=== PATIENT | female | born 1960 | race Caucasian/White ===

== ENCOUNTER 2025-08-31 04:58 | Inpatient (IN) | payer OTHER ==
[2025-08-31] MEDS ORDERED: ONDANSETRON 4 MG/2 ML VIAL ONE (05:03)
[2025-08-31] MEDS ORDERED: NA CHLORIDE 0.9% 50 ML ONE (05:04)
[2025-08-31] MEDS ORDERED: PROMETHAZINE INJ 25 MG/ML AMP ONE (05:04)
[2025-08-31 05:18] LABS: Absolute Lymphocytes (CBC) 2.4 K/uL (0.7-4.9); Hematocrit 49.2 % (36.0-45.0); Hemoglobin 16.3 g/dL (12.0-15.0); MCH 28.5 pg (27.0-35.0); MCHC 33.1 g/dL (32.0-36.0); MCV 86.2 fL (80-100); MPV 8.2 fL (7.6-11.3); Nucleated RBC Absolute Count 0.0 (0-0); Nucleated Red Blood Cells % 0.0 % (0-0); RBC Red Blood Cell Count 5.71 M/uL (3.86-4.86); White Blood Count 15.60 thou/uL (4.3-10.9)
[2025-08-31] MEDS ORDERED: CLOPIDOGREL 75 MG TABLET ONE (05:25)
[2025-08-31] MEDS ORDERED: HEPARIN/D5W 25,000 UNIT/500 ML BAG IV ONE (05:26)
[2025-08-31] MEDS ORDERED: NA CHLORIDE 0.9% 1,000 ML ONE (05:26)
[2025-08-31] MEDS ORDERED: FAMOTIDINE 20 MG/2 ML VIAL IV ONE (05:26)
[2025-08-31] MEDS ORDERED: ASPIRIN 81 MG CHEWABLE TABLET ONE (05:26)
[2025-08-31] MEDS ORDERED: HEPARIN 5000 UNIT/ML 1 ML VIAL ONE (05:26)
--- NOTE | 2025-08-31 05:35 | EDPHYS ---
Physician Documentation [facility] Name: Emperatriz Lambert Age: 65 yrs Sex: Female : 1960 Arrival Date: 08/31/2025 Time: 04:58 Bed 2 Private MD: ED Physician Russ Flores HPI: 08/31 05:13 This 65 yrs old Female presents to ER via Unassigned with complaints of cp, ray sob, n/v. 05:13 The patient or guardian reports chest pain that is located primarily in the substernal ray area. Onset: this morning, at 01:00. The patient presents to the emergency department with nausea, vomiting, abdominal pain, of the epigastric area. Onset: The symptoms/episode began/occurred at 01:00. Possible causes: unknown. The symptoms are aggravated by nothing. The symptoms are alleviated by nothing. cp , sent Sunday , left ama. The pain does not radiate. Associated signs and symptoms: Pertinent positives: abdominal pain, belching, nausea, vomiting. Associated signs and symptoms: The patient has no apparent associated signs or symptoms. Historical: - Allergies: 05:16 No Known Allergies; vc1 - Home Meds: 05:16 losartan 25 mg oral tablet [Active]; atorvastatin 80 mg oral tablet [Active]; baclofen vc1 10 mg Oral tablet 3 times per day [Active]; Prozac 40 mg Oral capsule [Active]; Jardiance 10 mg oral tablet [Active]; trazodone 100 mg Oral tablet [Active]; hydroxyzine HCl 25 mg Oral tablet 3 times per day [Active]; - PMHx: 05:16 Hypercholesterolemia; Hypertensive disorder; Anxiety; Depressive disorder; Diabetes vc1 mellitus; - PSHx: 05:16 cardiac stent; vc1 - Immunization history:: Client reports receiving the 2nd dose of the Covid vaccine. - Infectious Disease History:: Denies. - Family history:: not pertinent. - Social history:: Smoking status: Patient reports the use of cigarette tobacco products, smokes one-half pack cigarettes per day. ROS: 05:17 Constitutional: Negative for fever, chills, and weight loss, Eyes: Negative for injury, ray pain, redness, and discharge, ENT: Negative for injury, pain, and discharge, Neck: Negative for injury, pain, and swelling, Respiratory: Negative for shortness of breath, cough, wheezing, and pleuritic chest pain, Back: Negative for injury and pain, : Negative for injury, bleeding, discharge, and swelling, MS/Extremity: Negative for injury and deformity, Skin: Negative for injury, rash, and discoloration, Neuro: Negative for headache, weakness, numbness, tingling, and seizure, Psych: Negative for depression, anxiety, suicide ideation, homicidal ideation, and hallucinations, Allergy/Immunology: Negative for hives, rash, and allergies, Endocrine: Negative for neck swelling, polydipsia, polyuria, polyphagia, and marked weight changes, 05:17 Cardiovascular: Positive for chest pain, 05:17 Respiratory: Positive for cough, 05:17 Abdomen/GI: Positive for abdominal pain, nausea and vomiting, abdominal cramps, 05:17 MS/extremity: Negative for acute changes, Exam: 05:17 Constitutional: This is a well developed, well nourished patient who is awake, alert, ray and in no acute distress. Head/Face: Normocephalic, atraumatic. Eyes: Pupils equal round and reactive to light, extra-ocular motions intact. Lids and lashes normal. Conjunctiva and sclera are non-icteric and not injected. Cornea within normal limits. Periorbital areas with no swelling, redness, or edema. ENT: Nares patent. No nasal discharge, no septal abnormalities noted. Tympanic membranes are normal and external auditory canals are clear. Oropharynx with no redness, swelling, or masses, exudates, or evidence of obstruction, uvula midline. Mucous membranes moist. Neck: Trachea midline, no thyromegaly or masses palpated, and no cervical lymphadenopathy. Supple, full range of motion without nuchal rigidity, or vertebral point tenderness. No Meningismus. Chest/axilla: Normal chest wall appearance and motion. Nontender with no deformity. No lesions are appreciated. Respiratory: Lungs have equal breath sounds bilaterally, clear to auscultation and percussion. No rales, rhonchi or wheezes noted. No increased work of breathing, no retractions or nasal flaring. Abdomen/GI: Soft, non-tender, with normal bowel sounds. No distension or tympany. No guarding or rebound. No evidence of tenderness throughout. Back: No spinal tenderness. No costovertebral tenderness. Full range of motion. Skin: Warm, dry with normal turgor. Normal color with no rashes, no lesions, and no evidence of cellulitis. MS/ Extremity: Pulses equal, no cyanosis. Neurovascular intact. Full, normal range of motion., bilateral aka Neuro: Awake and alert, GCS 15, oriented to person, place, time, and situation. Cranial nerves II-XII grossly intact. Motor strength 5/5 in all extremities. Sensory grossly intact. Cerebellar exam normal. Normal gait. Psych: Awake, alert, with orientation to person, place and time. Behavior, mood, and affect are within normal limits. 05:17 Cardiovascular: Rate: actual rate is 108 bpm, Rhythm: regular, Pulses: Pulses are 4+ in bilateral radial, brachial, femoral, popliteal, posterior tibial and and dorsalis pedis arteries.. Heart sounds: normal, Edema: is not appreciated, JVD: is not appreciated, Vital Signs: 05:12 BP 152 / 109; Pulse 112; Resp 20; Pulse Ox 97% ; Weight 83.46 kg; Height 5 ft. 6 in. ; vc1 05:22 Weight 93.26 kg (M); vc1 05:57 Temp 97.4; vc1 06:37 BP 155 / 119; Pulse 103; Resp 17; Temp 97.4; Pulse Ox 95% on 2 lpm NC; Pain 8/10; bm8 07:57 BP 152 / 97; Pulse 104; Resp 22; Pulse Ox 91% on R/A; Pain 5/10; ar8 08:15 BP 161 / 93; Pulse 107; Resp 24; Pulse Ox 90% ; db 08:25 Pulse Ox 83% on 4 lpm NC; ar8 08:45 BP 165 / 97; Pulse 115; Resp 30; Pulse Ox 88% on NC; db 09:30 BP 158 / 105; Pulse 113; Resp 28; Pulse Ox 93% on BiPAP; db 10:15 BP 147 / 95; Pulse 107; Resp 28; Pulse Ox 92% on BiPAP; db 05:12 Body Mass Index 29.70 (93.26 kg, 167.64 cm) vc1 06:37 Pain Scale: Adult bm8 07:57 Pain Scale: Adult ar8 Jessenia Coma Score: 06:37 Eye Response: spontaneous(4). Motor Response: obeys commands(6). Verbal Response: bm8 oriented(5). Total: 15. MDM: 05:04 Medical Screening Exam initiated ray 05:20 Differential diagnosis: abnormal EKG, acute myocardial infarction, acute pericarditis, ray Nonspecific abd pain, gastritis, hiatal hernia, pancreatitis, peptic ulcer disease, stable angina, thoracic aortic disection, unstable angina. Differential Diagnosis altered mental status, sepsis, flu. HEART Score: History: Moderately Suspicious (1), ECG: Non specific repolarization disturbance / LBTB / PM (1), Age: > 45 and < 65 years (1), Risk Factors: > or = 3 Risk factors for atherosclerotic disease (2), [Hypercholesterolemia] [Hypertension] [DM] [Active Smoker] [+ Family HX] [Obesity] Troponin: < or = 1 x Normal Limit (0). The patient was given aspirin in the Emergency Department. AMANDA Risk Score: 1 - Three or more CAD risk factors, 1- Known CAD, 1 - ASA use in past 7 days, 1 - Recent [<24hrs] Severe Angina, TOTAL SCORE = 5. Data reviewed: vital signs, nurses notes, EMS record, lab test result(s), EKG, radiologic studies, plain films. Consideration of Admission/Observation Patient was admitted/placed on observation. Escalation of care including admission/observation considered. I considered the following discharge prescriptions or medication management in the emergency department Medications were administered in the Emergency Department. See MAR. Independent interpretation of the following test(s) in the Emergency Department EKG: See my EKG interpretation above. Test considered but Not performed: Ultrasound no 2 d echo. Care significantly affected by the following chronic conditions: Diabetes, Hypertension, Obesity, depression, high chlesterol. Counseling: I had a detailed discussion with the patient and/or guardian regarding the historical points, exam findings, and any diagnostic results supporting the discharge/admit diagnosis, the presence of at least one elevated blood pressure reading (>120/80) during this emergency department visit, lab results, radiology results, the need for further work-up and treatment in the hospital. 08/31 05:07 Order name: Basic Metabolic Panel; Complete Time: 06:35 [facility] 08/31 05:07 Order name: CBC with Diff; Complete Time: 06:35 [facility] 08/31 05:07 Order name: LFT's; Complete Time: 06:35 [facility] 08/31 05:07 Order name: Magnesium; Complete Time: 06:35 ray 08/31 05:07 Order name: NT PRO-BNP; Complete Time: 06:35 ray 08/31 05:07 Order name: PT-INR ray 08/31 05:07 Order name: Troponin HS; Complete Time: 06:35 ray 08/31 05:07 Order name: Lipase; Complete Time: 06:35 ray 08/31 05:41 Order name: Ptt, Activated; Complete Time: 06:35 bm8 08/31 07:16 Order name: Liver (Hepatic) Function EDMS 08/31 07:16 Order name: Basic Metabolic Panel EDMS 08/31 07:16 Order name: Basic Metabolic Panel EDMS 08/31 07:16 Order name: Basic Metabolic Panel EDMS 08/31 07:16 Order name: Basic Metabolic Panel EDMS 08/31 07:16 Order name: CBC with Automated Diff EDMS 08/31 07:16 Order name: CBC with Automated Diff EDMS 08/31 07:16 Order name: CBC with Automated Diff EDMS 08/31 07:16 Order name: CBC with Automated Diff EDMS 08/31 07:16 Order name: Lipid Profile EDMS 08/31 07:16 Order name: Lipid Profile EDMS 08/31 07:16 Order name: Magnesium EDMS 08/31 07:16 Order name: Magnesium EDMS 08/31 07:16 Order name: Magnesium EDMS 08/31 07:16 Order name: Magnesium EDMS 08/31 07:16 Order name: Phosphorus EDMS 08/31 07:16 Order name: Phosphorus EDMS 08/31 07:16 Order name: Protime (+INR) EDMS 08/31 07:16 Order name: Protime (+INR) EDMS 08/31 07:16 Order name: Protime (+INR) EDMS 08/31 07:16 Order name: Protime (+INR) EDMS 08/31 07:16 Order name: T4 Free EDMS 08/31 07:16 Order name: T4 Free EDMS 08/31 07:16 Order name: Thyroid Stimulating Hormone EDMS 08/31 07:16 Order name: Thyroid Stimulating Hormone EDMS 08/31 07:16 Order name: Troponin High Sensitivity EDMS 08/31 07:16 Order name: Troponin High Sensitivity EDMS 08/31 07:16 Order name: Troponin High Sensitivity EDMS 08/31 05:07 Order name: XRAY Chest (1 view); Complete Time: 08:29 [facility] 08/31 07:16 Order name: Chest For Pe Angio EDDE 08/31 09:54 Order name: BIPAP rn 08/31 07:10 Order name: CONS Physician Consult EDDE 08/31 07:12 Order name: EKG; Complete Time: 07:12 [facility] 08/31 07:16 Order name: EKG Electrocardiogram [facility] 08/31 07:16 Order name: EKG Electrocardiogram [facility] 08/31 07:16 Order name: EKG Electrocardiogram [facility] 08/31 05:07 Order name: Cardiac monitoring; Complete Time: 05:30 [facility] 08/31 05:07 Order name: EKG - Nurse/Tech; Complete Time: 05:34 [facility] 08/31 05:07 Order name: IV Saline Lock; Complete Time: 05:30 [facility] 08/31 05:07 Order name: Labs collected and sent; Complete Time: 05:29 [facility] 08/31 05:07 Order name: O2 Per Protocol; Complete Time: 05:34 [facility] 08/31 05:07 Order name: O2 Sat Monitoring; Complete Time: 05:30 [facility] 08/31 07:12 Order name: EKG - Nurse/Tech [facility] Administered Medications: 05:11 Drug: Promethazine IM 12.5 mg IM once; iv plese in 100 cc ns {Note: left hand mixed in vc1 saline per provider.} Route: IM; Site: Other; 06:00 Follow up: Response: No adverse reaction; Marked relief of symptoms vc1 05:12 Drug: Ondansetron IVP 4 mg IVP once; over 2 minutes Route: IVP; Site: left hand; vc1 05:30 Follow up: Response: No adverse reaction; Marked relief of symptoms vc1 05:33 Drug: NS 0.9% IV 1000 ml IV at 1000 ml once; to be given as a bolus over 60 minutes bm8 Route: IV; Rate: 1000 ml; Site: left hand; 06:33 Follow up: IV Status: Completed infusion; IV Intake: 1000ml vc1 05:33 Drug: Aspirin PO Chewable Tablet 162 mg PO once Route: PO; bm8 06:45 Follow up: Response: No adverse reaction vc1 05:33 Drug: Famotidine IVP 20 mg IVP once; dilute with 10 mL 0.9% NaCl; give over 2 minutes bm8 Route: IVP; Site: left hand; 06:00 Follow up: Response: No adverse reaction; Marked relief of symptoms vc1 05:33 Drug: Clopidogrel PO 150 mg PO once Route: PO; bm8 06:46 Follow up: Response: No adverse reaction; Marked relief of symptoms vc1 05:39 Drug: fentaNYL (PF) IVP 25 mcg IVP once Route: IVP; Site: left antecubital; bm8 06:00 Follow up: Response: No adverse reaction; Marked relief of symptoms; RASS: Light vc1 sedation (-2) 05:39 Drug: fentaNYL (PF) IVP 25 mcg IVP once Route: IVP; Site: left antecubital; bm8 06:00 Follow up: Response: No adverse reaction; Marked relief of symptoms; RASS: Light vc1 sedation (-2) 05:40 Drug: Heparin (NC-Bolus No thrombolytic) - HEParin IVP 60 units/kg IVP once; Max 5000 bm8 units {Co-Signature: vc1 (Ree Askew RN).} Route: IVP; Site: left antecubital; 05:45 Follow up: Response: No adverse reaction vc1 05:40 Drug: Heparin (NC Drip) 12 units/kg/[place] - ([place] [address] units, D5W IV 500 ml) IV at bm8 calculated rate Per protocol; Max initial rate 1000 units/hr {Co-Signature: vc1 (Ree Askew RN).} Route: IV; Rate: 1000 units/hr; Site: left antecubital; 10:39 Follow up: Response: No adverse reaction; IV Status: Infusion continued upon admission db 06:57 Drug: Nitroglycerin Transdermal Ointment 2 % 1 inches Transdermal once Route: bm8 Transdermal; Site: anterior chest wall; 10:39 Follow up: Response: No adverse reaction db 07:06 Drug: Potassium PO Effervescent Tablet 25 mEq PO once; dissolve in 4 ounces of water or vc1 juice {Note: ADMINISTERED 20 MG CAP PER PROVIDER.} Route: PO; 10:39 Follow up: Response: No adverse reaction db 07:31 Drug: Ondansetron IVP 4 mg IVP once; over 2 minutes Route: IVP; Site: left hand; ar8 10:38 Follow up: Response: No adverse reaction db 07:33 Drug: morphine IVP or IV 2 mg IVP once over 4 mins Route: IVP; Infused Over: 4 mins; ar8 Site: left hand; 10:38 Follow up: Response: No adverse reaction db 10:05 Not Given (Physician Discretion): morphineor iv 2 mg IVP once over 4 mins ar8 Disposition Summary: 08/31/25 05:34 Hospitalization Ordered Notes: Hospitalization Status: Inpatient Admission ray Provider: Johnny Sofia cha Condition: Fair ray Problem: an acute exacerbation ray Symptoms: have improved ray Bed/Room Type: Standard ray Location: Intensive Care Unit(08/31/25 09:46) hb Room Assignment: 7-(08/31/25 10:08) bd Diagnosis - Chest pain, unspecified ray - Essential (primary) hypertension ray - Vomiting ray - COPD/ Chronic obstructive pulmonary disease, unspecified ray - Tobacco abuse counseling ray - Tobacco use ray - Anxiety disorder, unspecified ray Forms: - Medication Reconciliation Form ray - SBAR form ray - Leadership Thank You Letter ray Signatures: Dispatcher [employer] EDMS Ivania Cohen Corey, MD MD cha Nieto, Roman, MD MD rn Baxter, Heather, RN RN hb Ree Askew RN RN vc1 Justin Bautista, RN RN bm8 Bolivar Nevarez, RN RN ar8 Jennifer Johnson RN db Ree Askew RN vc1 Corrections: (The following items were deleted from the chart) 05:08 05:08 BASIC METABOLIC PANEL+C.LAB.BRZ ordered. EDMS EDMS 05:08 05:08 CBC+H.LAB.BRZ ordered. EDMS EDMS 05:08 05:08 HEPATIC FUNCTION+C.LAB.BRZ ordered. EDMS EDMS 05:08 05:08 MAGNESIUM+C.LAB.BRZ ordered. EDMS EDMS 05:08 05:08 PROBNP+C.LAB.BRZ ordered. EDMS EDMS 05:08 05:08 PROTIME (+INR)+COAG.LAB.BRZ ordered. EDMS EDMS 05:08 05:08 Troponin High Sensitivity+C.LAB.BRZ ordered. EDMS EDMS 05:08 05:08 LIPASE+C.LAB.BRZ ordered. EDMS EDMS 05:08 05:08 Chest Single View+RAD.RAD.BRZ ordered. EDMS EDMS 07:18 05:34 ray bd 09:46 05:34 Telemetry/MedSurg (Inpatient) [facility] 09:46 07:18 404 bd hb 09:48 09:48 PTT, ACTIVATED+COAG.LAB.BRZ ordered. EDMS EDMS 10:08 09:46 [facility]
--- NOTE | 2025-08-31 05:35 | ER ---
Nurse's Notes [facility] Name: Emperatriz Lambert Age: 65 yrs Sex: Female : 1960 Arrival Date: 08/31/2025 Time: 04:58 Bed 2 Private MD: Diagnosis: Chest pain, unspecified;Essential (primary) hypertension;Vomiting;COPD/ Chronic obstructive pulmonary disease, unspecified;Tobacco abuse counseling;Tobacco use;Anxiety disorder, unspecified Presentation: 08/31 05:12 Chief complaint: EMS states: cardiac stent placed on Sunday, chest pain since and vc1 started vomiting a 0100. Coronavirus screen: Client denies travel out of the [place] in the last 14 days. At this time, the client does not indicate any symptoms associated with coronavirus-19. Ebola Screen: Patient negative for fever greater than or equal to 101.5 degrees Fahrenheit, and additional compatible Ebola Virus Disease symptoms Patient denies exposure to infectious person. Patient denies travel to an Ebola-affected area in the 21 days before illness onset. No symptoms or risks identified at this time. Initial Sepsis Screen: Does the patient meet any 2 criteria? No. Patient's initial sepsis screen is negative. Does the patient have a suspected source of infection? No. Patient's initial sepsis screen is negative. Risk Assessment: Do you want to hurt yourself or someone else? Patient reports no desire to harm self or others. Note Pt left AMA after cardiac stent and therefore did not receive any anticoagulants. Onset of symptoms was August 31, 2025 at 01:00. Care prior to arrival: Medication(s) given: zofran 4 mg, IV initiated. 20 GA, in the left hand, Glucose check: 141. Activity prior to arrival: vomiting. Mechanism of Injury: No Mechanism of Injury. Transition of care: patient was not received from another setting of care. 05:12 Method Of Arrival: EMS: [facility] vc1 05:12 Acuity: CODI 3 vc1 Triage Assessment: 05:19 General: Appears uncomfortable, ill, Behavior is anxious. Pain: Complains of pain in vc1 epigastric area. EENT: No deficits noted. No signs and/or symptoms were reported regarding the EENT system. Neuro: Level of Consciousness is awake, alert, obeys commands, Oriented to person, place, time, situation, Appropriate for age. Cardiovascular: Capillary refill < 3 seconds Patient's skin is warm and dry. Cardiovascular: Reports chest pain, nausea, vomiting, Heart tones S1 S2 present. Respiratory: Airway is patent Respiratory effort is even, unlabored, Respiratory pattern is regular, symmetrical, Breath sounds are clear bilaterally. GI: Pt is actively vomiting Reports epigastric pain, nausea, vomiting. : No deficits noted. No signs and/or symptoms were reported regarding the genitourinary system. Derm: Skin is intact, is healthy with good turgor, Skin is dry, Skin is normal, Skin temperature is warm. Musculoskeletal: Circulation, motion, and sensation intact. Range of motion: intact in all extremities. Historical: - Allergies: 05:16 No Known Allergies; vc1 - Home Meds: 05:16 losartan 25 mg oral tablet [Active]; atorvastatin 80 mg oral tablet [Active]; baclofen vc1 10 mg Oral tablet 3 times per day [Active]; Prozac 40 mg Oral capsule [Active]; Jardiance 10 mg oral tablet [Active]; trazodone 100 mg Oral tablet [Active]; hydroxyzine HCl 25 mg Oral tablet 3 times per day [Active]; - PMHx: 05:16 Hypercholesterolemia; Hypertensive disorder; Anxiety; Depressive disorder; Diabetes vc1 mellitus; - PSHx: 05:16 cardiac stent; vc1 - Immunization history:: Client reports receiving the 2nd dose of the Covid vaccine. - Infectious Disease History:: Denies. - Family history:: not pertinent. - Social history:: Smoking status: Patient reports the use of cigarette tobacco products, smokes one-half pack cigarettes per day. Screenin:18 [facility] ED Fall Risk Assessment (Adult) History of falling in the last 3 months, vc1 including since admission No falls in past 3 months (0 pts) Confusion or Disorientation No (0 pts) Intoxicated or Sedated No (0 pts) Impaired Gait No (0 pts) Mobility Assist Device Used No (0 pt) Altered Elimination No (0 pt) Score/Fall Risk Level 0 - 2 = Low Risk Oriented to surroundings, Maintained a safe environment, Educated pt \T\ family on fall prevention, incl call for assistance when getting out of bed, Assessed \T\ reinforced patient's understanding of fall precautions, Hourly rounding (assess needs \T\ fall precautionary measures) done. Abuse screen: Denies threats or abuse. Nutritional screening: No deficits noted. Tuberculosis screening: No symptoms or risk factors identified. Assessment: 05:19 General: See triage assessment. vc1 06:37 Reassessment: Patient and/or family updated on plan of care and expected duration. Pain bm8 level reassessed. Patient is alert, oriented x 3, equal unlabored respirations, skin warm/dry/pink. GI: Abdomen is round non-distended, Abdomen is tender to palpation X 4 quads. Reports lower abdominal pain, upper abdominal pain, Patient currently denies nausea. 08:25 Reassessment: Patient's O2 sat noted to be 83% on 4L NC. ERP and RT notified. RT at ar8 bedside. 09:30 Reassessment: Patient appears in no apparent distress at this time. Patient and/or db family updated on plan of care and expected duration. Pain level reassessed. Patient is alert, oriented x 3, equal unlabored respirations, skin warm/dry/pink. Reassessment: Patient and/or family updated on plan of care and expected duration. Pain level reassessed. 10:37 Reassessment: Patient and/or family updated on plan of care and expected duration. Pain db level reassessed. Patient is alert, oriented x 3, equal unlabored respirations, skin warm/dry/pink. Vital Signs: 05:12 BP 152 / 109; Pulse 112; Resp 20; Pulse Ox 97% ; Weight 83.46 kg; Height 5 ft. 6 in. ; vc1 05:22 Weight 93.26 kg (M); vc1 05:57 Temp 97.4; vc1 06:37 BP 155 / 119; Pulse 103; Resp 17; Temp 97.4; Pulse Ox 95% on 2 lpm NC; Pain 8/10; bm8 07:57 BP 152 / 97; Pulse 104; Resp 22; Pulse Ox 91% on R/A; Pain 5/10; ar8 08:15 BP 161 / 93; Pulse 107; Resp 24; Pulse Ox 90% ; db 08:25 Pulse Ox 83% on 4 lpm NC; ar8 08:45 BP 165 / 97; Pulse 115; Resp 30; Pulse Ox 88% on NC; db 09:30 BP 158 / 105; Pulse 113; Resp 28; Pulse Ox 93% on BiPAP; db 10:15 BP 147 / 95; Pulse 107; Resp 28; Pulse Ox 92% on BiPAP; db 05:12 Body Mass Index 29.70 (93.26 kg, 167.64 cm) vc1 06:37 Pain Scale: Adult bm8 07:57 Pain Scale: Adult ar8 [place] Coma Score: 06:37 Eye Response: spontaneous(4). Motor Response: obeys commands(6). Verbal Response: bm8 oriented(5). Total: 15. ED Course: 05:02 Patient arrived in ED. bm8 05:04 Russ Flores MD is Attending Physician. ray 05:16 Triage completed. vc1 05:18 Arm band placed on right wrist. vc1 05:19 Patient has correct armband on for positive identification. Bed in low position. Call vc1 light in reach. Provided Education on: Plan of care. development administrator on. Pulse ox on. NIBP on. 05:32 Johnny Sofia MD is Hospitalizing Provider. ray 05:54 XRAY Chest (1 view) In Process Unspecified. EDMS 05:57 Oxygen administration via nasal cannula \T\ 2L/min. vc1 06:43 Ree Askew, JAZMINE is Primary Nurse. vc1 10:05 Report given to JAZMINE Stiles in ICU. ar8 10:37 No provider procedures requiring assistance completed. Patient admitted, IV remains in db place. Administered Medications: 05:11 Drug: Promethazine IM 12.5 mg IM once; iv plese in 100 cc ns {Note: left hand mixed in vc1 saline per provider.} Route: IM; Site: Other; 06:00 Follow up: Response: No adverse reaction; Marked relief of symptoms vc1 05:12 Drug: Ondansetron IVP 4 mg IVP once; over 2 minutes Route: IVP; Site: left hand; vc1 05:30 Follow up: Response: No adverse reaction; Marked relief of symptoms vc1 05:33 Drug: NS 0.9% IV 1000 ml IV at 1000 ml once; to be given as a bolus over 60 minutes bm8 Route: IV; Rate: 1000 ml; Site: left hand; 06:33 Follow up: IV Status: Completed infusion; IV Intake: 1000ml vc1 05:33 Drug: Aspirin PO Chewable Tablet 162 mg PO once Route: PO; bm8 06:45 Follow up: Response: No adverse reaction vc1 05:33 Drug: Famotidine IVP 20 mg IVP once; dilute with 10 mL 0.9% NaCl; give over 2 minutes bm8 Route: IVP; Site: left hand; 06:00 Follow up: Response: No adverse reaction; Marked relief of symptoms vc1 05:33 Drug: Clopidogrel PO 150 mg PO once Route: PO; bm8 06:46 Follow up: Response: No adverse reaction; Marked relief of symptoms vc1 05:39 Drug: fentaNYL (PF) IVP 25 mcg IVP once Route: IVP; Site: left antecubital; bm8 06:00 Follow up: Response: No adverse reaction; Marked relief of symptoms; RASS: Light vc1 sedation (-2) 05:39 Drug: fentaNYL (PF) IVP 25 mcg IVP once Route: IVP; Site: left antecubital; bm8 06:00 Follow up: Response: No adverse reaction; Marked relief of symptoms; RASS: Light vc1 sedation (-2) 05:40 Drug: Heparin (AK-Bolus No thrombolytic) - HEParin IVP 60 units/kg IVP once; Max 5000 bm8 units {Co-Signature: vc1 (Ree Askew RN).} Route: IVP; Site: left antecubital; 05:45 Follow up: Response: No adverse reaction vc1 05:40 Drug: Heparin (AK Drip) 12 units/kg/hr - ([place] [address] units, D5W IV 500 ml) IV at bm8 calculated rate Per protocol; Max initial rate 1000 units/hr {Co-Signature: vc1 (Ree Askew RN).} Route: IV; Rate: 1000 units/hr; Site: left antecubital; 10:39 Follow up: Response: No adverse reaction; IV Status: Infusion continued upon admission db 06:57 Drug: Nitroglycerin Transdermal Ointment 2 % 1 inches Transdermal once Route: bm8 Transdermal; Site: anterior chest wall; 10:39 Follow up: Response: No adverse reaction db 07:06 Drug: Potassium PO Effervescent Tablet 25 mEq PO once; dissolve in 4 ounces of water or vc1 juice {Note: ADMINISTERED 20 MG CAP PER PROVIDER.} Route: PO; 10:39 Follow up: Response: No adverse reaction db 07:31 Drug: Ondansetron IVP 4 mg IVP once; over 2 minutes Route: IVP; Site: left hand; ar8 10:38 Follow up: Response: No adverse reaction db 07:33 Drug: morphine IVP or IV 2 mg IVP once over 4 mins Route: IVP; Infused Over: 4 mins; ar8 Site: left hand; 10:38 Follow up: Response: No adverse reaction db 10:05 Not Given (Physician Discretion): morphineor iv 2 mg IVP once over 4 mins ar8 Medication: 05:19 VIS not applicable for this client. vc1 Intake: 06:33 IV: 1000ml; Total: 1000ml. vc1 Outcome: 05:34 Decision to Hospitalize by Provider. ray 10:37 Admitted to ICU accompanied by nurse, via stretcher, room 7, with oxygen, on monitor, db 10:37 Condition: stable 10:37 Instructed on the need for admit, 10:40 Patient left the ED. hb Signatures: Dispatcher [employer] EDMS Russ Flores MD MD cha Baxter, Heather, RN RN hb Ree Askew RN RN vc1 Jennifer Johnson RN RN db Justin Bautista RN RN bm8 Bolivar Nevarez RN RN ar8 Ree Askew RN vc1 Corrections: (The following items were deleted from the chart) 05:22 05:22 93.26 kg; vc1 vc1 05:41 05:40 Heparin (AK [place]rip) - ([place] [address] units, D5W IV 500 ml) IV at calculated rate bm8 in left antecubital bm8 11:21 10:37 Reassessment: Patient appears in no apparent distress at this time. Patient db and/or family updated on plan of care and expected duration. Pain level reassessed. Patient is alert, oriented x 3, equal unlabored respirations, skin warm/dry/pink. db
[2025-08-31 05:40] LABS: ALT/SGPT 24.0 U/L (13-56); AST/SGOT 18.0 U/L (15-37); Albumin 3.9 g/dL (3.4-5.0); Albumin/Globulin Ratio 1.1 (1.1-1.8); Alkaline Phosphatase 78.0 U/L (45-117); Anion Gap 14.3 mEq/L (5.0-15.0); BUN Blood Urea Nitrogen 16.0 mg/dL (7-18); Bilirubin Indirect, Calculated 0.5 mg/dL (0.2-0.8); Globulin 3.4 g/dL (2.3-3.5); Glucose Level 171.0 mg/dL (74-106); Lipase 18.0 U/L (13-75); Magnesium 1.9 mg/dL (1.6-2.4); NT PRO-BNP 800.0 pg/mL (<125); Potassium 3.3 mEq/L (3.5-5.1)
[2025-08-31 05:43] LABS: Troponin High Sensitivity 101.4 pg/mL (<58.9)
[2025-08-31] MEDS ORDERED: NITROGLYCERIN 1 GM PKT TD ONE (06:45)
[2025-08-31] MEDS ORDERED: POTASSIUM CL SA 10 MEQ TAB PO ONE (06:57)
[2025-08-31] MEDS ORDERED: ACETAMINOPHEN 325 MG TABLET PO PRN (07:08)
--- NOTE | 2025-08-31 07:13 | RAD REPORT ---
EXAMINATION: ONE VIEW CHEST XR CLINICAL INDICATION: Female, 65 years old.,CHEST PAIN TECHNIQUE: Frontal chest projection is submitted. Examination is limited by patient positioning and t echnique. COMPARISON: No prior exam. FINDINGS: The lungs are grossly clear although suboptimal inspiratory effort somewhat limits evaluation. No pn eumothorax or sizable effusion. The heart is normal in size. Mediastinal contours are unremarkable. IMPRESSION: No acute intrathoracic abnormalities.
[2025-08-31] MEDS ORDERED: MORPHINE 4 MG/ML SYR ONE (07:18)
--- NOTE | 2025-08-31 07:22 | P.HP ---
Certification for Inpatient Patient admitted to: Inpatient With expected LOS: >2 Midnights Patient will require the following post-hospital care: None Practitioner: I am a practitioner with admitting privileges, knowledge of patient current condition, hospital course, and medical plan of care. Services: Services provided to patient in accordance with Admission requirements found in Title 42 Section 412.3 of the Code of Federal Regulations <Brian Villafana - Last Filed: 08/31/25 07:16> Patient History Date of Service: 08/31/25 Reason for admission: CP, ACS r/o History of Present Illness: History: Tamica Lambert is a 65-year-old who presented to the emergency room with complaints of chest pain, shortness of breath, nausea, and vomiting. She endorsed persistent nausea, initially with vomiting and now with dry heaving, accompanied by chest pain that began around 1:00 AM this morning. The chest pain is primarily substernal and does not radiate, nor is it alleviated or aggravated by anything. She stated that she felt well after leaving her stent placement on Sunday, Sunday, and Sunday. Tamica Lambert denied experiencing dizziness, blurred vision, sweating, radiation of chest pain, or one-sided weakness. She was noted to be lying in bed in moderate distress on room air with a vomit bag at the bedside. Past Medical History: - Hypercholesterolemia - Hypertensive disorder - Anxiety - Depressive disorder - Diabetes mellitus type 2 - Stent placement on 08/28/2024 - Coronary artery disease Family history: Positive family history for atherosclerotic disease. Social history: Tamica Lambert is a current smoker, consuming half a pack of cigarettes per day. She denied alcohol or drug use. Allergies and reactions: Denies any allergies. Home medications list reviewed: Yes - Past Medical/Surgical History Has patient received pneumonia vaccine in the past: No Diabetic: Yes -: HLD -: HTN -: Depression -: Anxiety -: DM2 -: CAD -: Cardiac stent x 08/28/25 - Social History Smoking Status: Current every day smoker Smoking therapy provided: Yes Patient receptive to therapy: No Alcohol use: No CD- Drugs: No Caffeine use: Yes Place of Residence: Home <Brian Villafana - Last Filed: 08/31/25 07:16> Date of Service: 08/31/25 <Johnny Sofia - Last Filed: 08/31/25 09:58> Allergies No Known Allergies Allergy (Unverified 08/31/25 07:06) Home Medications: Atorvastatin Calcium [Lipitor] 80 mg PO BEDTIME 08/31/25 Baclofen 10 mg PO 08/31/25 Empagliflozin [Jardiance] 10 mg PO 08/31/25 Fluoxetine HCl [Prozac] 20 mg PO 08/31/25 Losartan Potassium 25 mg PO 08/31/25 Trazodone HCl 100 mg PO 08/31/25 hydrOXYzine pamoate [Hydroxyzine Pamoate] 25 mg PO 08/31/25 Review of Systems 10-point ROS is otherwise unremarkable <Brian Villafana - Last Filed: 08/31/25 07:16> Physical Examination - Physical Exam General: Alert, Oriented x3, Cooperative, Moderate distress, Obese HEENT: Atraumatic, Normocephalic, Mucous membr. moist/pink Neck: Supple, 2+ carotid pulse no bruit, JVD not distended, No Thyromegaly Respiratory: Clear to auscultation bilaterally, Normal air movement Cardiovascular: No edema, Normal pulses, Regular rate/rhythm, Normal S1 S2 Capillary refill: Brisk Gastrointestinal: Normal bowel sounds, Soft and benign, Non-distended Musculoskeletal: No clubbing, No swelling, No contractures, No erythema Integumentary: No rashes, No breakdown, No significant lesion, No tenderness/swelling Neurological: Normal speech, Normal tone, Sensation intact, Cranial nerves 3-12 intact, Normal affect - Studies Laboratory Data (last 24 hrs) 08/31/25 08/31/25 08/31/25 05:12 05:12 05:12 WBC 15.60 H Hgb 16.3 H Hct 49.2 H Plt Count 351 APTT 32.3 Sodium 139 Potassium 3.3 L BUN 16 Creatinine 0.91 Glucose 171 H Magnesium 1.9 Total Bilirubin 0.7 AST 18 ALT 24 Alkaline Phosphatase 78 Lipase 18 <Brian Villafana - Last Filed: 08/31/25 07:16> - Studies Laboratory Data (last 24 hrs) 08/31/25 08/31/25 08/31/25 05:12 05:12 05:12 WBC 15.60 H Hgb 16.3 H Hct 49.2 H Plt Count 351 APTT 32.3 Sodium 139 Potassium 3.3 L BUN 16 Creatinine 0.91 Glucose 171 H Magnesium 1.9 Total Bilirubin 0.7 AST 18 ALT 24 Alkaline Phosphatase 78 Lipase 18 <Johnny Sofia - Last Filed: 08/31/25 09:58> Assessment and Plan - Plan Assessment: 65-year-old female with complaints of chest pain, shortness of breath, N/V with stent placement with Dr. Hammond on 08/28/2025 in [place] admitted for ACS rule out. Plan: Chest pain nausea and vomiting - Impression: Angina, possible acute coronary syndrome given elevated troponin and EKG findings. - Differential diagnoses: - Acute coronary syndrome - Gastroesophageal reflux disease - Anxiety-related symptoms -Postprocedure pericarditis - Recommendations, counselling, advice or safety netting given: Tamica Lambert was counselled regarding the importance of remaining compliant with medical advice following cardiac procedures. - Investigations requested or planned: - Moderately suspicious EKG, continue to trend -Troponin 101, continue to trend to peak - Treatments advised, prescribed or commenced: - Aspirin - Promethazine 12.5 mg p.o. once in ED - Zofran 4 mg IV once, continue every 6 hours as needed - Clopidogrel loading dose 150 mg once in ED, continue 75 mg daily thereafter - Aspirin 162 mg once in ED - Given normal saline 1 liter bolus in ED -Continue NS at 100 mL/h -On heparin drip pending further cardiology recommendations -Patient n.p.o. in case of cardiac intervention - Referrals to other health professionals or services: - Cardiology consult, Dr. Hammond Hypokalemia - Replete with potassium protocol Monitor BMP Hypertensive disorder, uncontrolled - Monitor vital signs Resume home regimen once med rec complete Titrate as needed DVT prophylaxis not needed due to heparin drip Diet n.p.o. CODE STATUS full code Discharge Plan: Home Plan to discharge in: 48 Hours - Advance Directives Does patient have a Living Will: No Does patient have a Durable POA for Healthcare: No - Code Status/Comfort Care Code Status Assessed: Yes (Full code) Critical Care: No <Brian Villafana - Last Filed: 08/31/25 07:16> - Problems (Diagnosis) (1) Acute respiratory failure Current Visit: Yes Status: Acute (2) Coronary artery disease status post coronary stent insertion Current Visit: Yes Status: Acute (3) Hypoxemia Current Visit: Yes Status: Acute (4) Hypertensive emergency Current Visit: Yes Status: Acute <Johnny Sofia - Last Filed: 08/31/25 09:58> Date of Service: 08/31/25 Patient was seen and examined. Events of the last 24 hours have been noted. Spoke with with KRISTEN regarding patient's clinical picture after evaluating and examining the patient independently. I performed a substantial part of the MDM during this patient's care today. I personally made or approved the documented management plan and acknowledge its risk of complications. I agree with the findings and documentation provided in the KRISTEN's notes. <Johnny Sofia - Last Filed: 08/31/25 09:58>
--- NOTE | 2025-08-31 08:43 | RAD REPORT ---
EXAM: CT Chest For Pe Angio TECHNIQUE: CT angiogram of the chest was performed following intravenous contrast administration, inc luding sagittal and coronal as well as maximum intensity projection reformats. One or more of the following dose reduction techniques were used: Automated exposure control, adjustment of the mA and k V according to patient size, and iterative reconstruction. Unless otherwise specified, incidental findings do not require dedicated imaging follow-up. INDICATION: [facility] MAIN CP, dyspnea Y COMPARISON: 08/31/2025 chest radiograph. FINDINGS: LINES/TUBES: None. PULMONARY ARTERIES: Main pulmonary arteries are normal in caliber. No filling defects within the pul monary arteries to suggest pulmonary embolus. LUNGS AND AIRWAYS: Ill-defined dependent groundglass opacities in the bases bilaterally. No dependent bronchial wall prominence as well. Crowding of the vascular structures somewhat limits evaluation. Central airways are patent. PLEURA: No effusion or pneumothorax. HEART AND MEDIASTINUM: The visualized thyroid gland is normal. No mediastinal, hilar, or axillary lym phadenopathy. Heart is unremarkable. No pericardial effusion. SOFT TISSUES AND BONES: No acute osseous abnormality. No significant soft tissue finding. UPPER ABDOMEN: Unremarkable. IMPRESSION: No evidence of acute pulmonary emboli. Dependent complex opacities and bronchial wall prominence, reflect central congestive changes or dada a. Superimposed infectious or inflammatory process is considered less likely but not entirely excluded.
[2025-08-31] MEDS: NITROGLYCERIN 1 GM PKT TD ONE (09:51)
--- NOTE | 2025-08-31 09:57 | P.PN ---
Subjective Date of Service: 08/31/25 Patient's clinical symptoms deteriorated in the emergency room. Patient went into respiratory distress. Patient was placed on a BiPAP. Patient's blood pressure was significantly elevated so possibly flash pulmonary edema in a patient with a recent coronary artery stent placed. Cardiology has been consult ed. Nitropaste and Lasix given. Torres catheter will be placed as well. Patient will be admitted to the intensive care unit. Review of Systems 10-point ROS is otherwise unremarkable Physical Examination - Vital Signs Temperature: 98 F Blood Pressure: 160/110 Pulse: 110 Respirations: 26 Pulse Ox (%): 80 - Physical Exam General: Alert, In no apparent distress, Moderate distress HEENT: Atraumatic, PERRLA, EOMI Neck: Supple, JVD not distended Respiratory: Normal air movement, Crackles/rales Cardiovascular: Regular rate/rhythm, Normal S1 S2, Systolic murmur Gastrointestinal: Normal bowel sounds, Soft and benign, Non-distended, No tenderness Musculoskeletal: No clubbing, No tenderness, Swelling Integumentary: No rashes Neurological: Sensation intact, Cranial nerves 3-12 intact - Studies Laboratory Data (last 24 hrs) 08/31/25 08/31/25 08/31/25 05:12 05:12 05:12 WBC 15.60 H Hgb 16.3 H Hct 49.2 H Plt Count 351 APTT 32.3 Sodium 139 Potassium 3.3 L BUN 16 Creatinine 0.91 Glucose 171 H Magnesium 1.9 Total Bilirubin 0.7 AST 18 ALT 24 Alkaline Phosphatase 78 Lipase 18 Medications List Reviewed: Yes Assessment & Plan - Problems (Diagnosis) (1) Acute respiratory failure Current Visit: Yes Status: Acute (2) Coronary artery disease status post coronary stent insertion Current Visit: Yes Status: Acute (3) Hypoxemia Current Visit: Yes Status: Acute (4) Hypertensive emergency Current Visit: Yes Status: Acute - Plan Plan: 1. BiPAP support 2. ABG 3. Nebs, steroids, and antibiotics 4. Nitropaste and Lasix 5. Procalcitonin level 6. Torres catheter 7. Cardiology consultation 8. Repeat echocardiogram Discharge Plan: Home Plan to discharge in: Greater than 2 days - Advance Directives Does patient have a Living Will: No Does patient have a Durable POA for Healthcare: No - Code Status/Comfort Care Code Status Assessed: Yes Code Status: Full Code Critical Care: Yes Time Spent Managing PTS Care (In Minutes): 50
[2025-08-31 10:42] LABS: ALT/SGPT 25.0 U/L (13-56); AST/SGOT 15.0 U/L (15-37); Albumin 3.7 g/dL (3.4-5.0); Albumin/Globulin Ratio 1.1 (1.1-1.8); Alkaline Phosphatase 85.0 U/L (45-117); Bilirubin Indirect, Calculated 0.7 mg/dL (0.2-0.8); Globulin 3.4 g/dL (2.3-3.5)
--- NOTE | 2025-08-31 10:46 | P.CNS ---
Date of Consult: 08/31/25 Chief Complaint: CP, ACS r/o History of Present Illness: Patient with PMH of CAD s/p PCI of the RCA last sunday, left the hospital AMA and did not take her medications, presented with chest pain, nausea and vomiting, now she is having pulmonary edema and on BiPAP, denies chest pain. Allergies No Known Allergies Allergy (Unverified 08/31/25 07:06) Home medications list reviewed: Yes Home Medications: Atorvastatin Calcium [Lipitor] 80 mg PO BEDTIME 08/31/25 Baclofen 10 mg PO 08/31/25 Empagliflozin [Jardiance] 10 mg PO 08/31/25 Fluoxetine HCl [Prozac] 20 mg PO 08/31/25 Losartan Potassium 25 mg PO 08/31/25 Trazodone HCl 100 mg PO 08/31/25 hydrOXYzine pamoate [Hydroxyzine Pamoate] 25 mg PO 08/31/25 - Past Medical/Surgical History Diabetic: Yes -: HLD -: HTN -: Depression -: Anxiety -: DM2 -: CAD -: Cardiac stent x 08/28/25 - Social History Alcohol use: No CD- Drugs: No Caffeine use: Yes Place of Residence: Home Review of Systems 10-point ROS is otherwise unremarkable Physical Examination Temp Pulse Resp BP Pulse Ox 98 F 110 H 26 H 160/110 H 80 L 08/31/25 09:57 08/31/25 09:57 08/31/25 09:57 08/31/25 09:57 08/31/25 09:57 General: Alert, In no apparent distress HEENT: Atraumatic, PERRLA, Mucous membr. moist/pink, EOMI, Sclerae nonicteric Neck: Supple, 2+ carotid pulse no bruit, No LAD, Without JVD or thyroid abnormality Respiratory: Clear to auscultation bilaterally, Normal air movement Cardiovascular: Regular rate/rhythm, Normal S1 S2 Gastrointestinal: Normal bowel sounds, No tenderness Musculoskeletal: No tenderness Integumentary: No rashes Neurological: Normal gait, Normal speech, Normal tone, Normal affect Lymphatics: No axilla or inguinal lymphadenopathy Laboratory Data (last 24 hrs) 08/31/25 08/31/25 08/31/25 05:12 05:12 05:12 WBC 15.60 H Hgb 16.3 H Hct 49.2 H Plt Count 351 PT INR APTT 32.3 Sodium 139 Potassium 3.3 L BUN 16 Creatinine 0.91 Glucose 171 H Magnesium 1.9 Total Bilirubin 0.7 AST 18 ALT 24 Alkaline Phosphatase 78 Lipase 18 08/31/25 05:07 WBC Hgb Hct Plt Count PT Cancelled INR Cancelled APTT Sodium Potassium BUN Creatinine Glucose Magnesium Total Bilirubin AST ALT Alkaline Phosphatase Lipase - Problems (1) NSTEMI (non-ST elevated myocardial infarction) Current Visit: Yes Status: Acute Plan: Patient with history of PCI LCX, recent PCI Ostial RCA, left AMA from another hospital so she is did not get her DAPT Troponin mild elevated with no significant EKG changes. continue to trend cardiac enzymes continue Heparin drip get echo continue ASA 81 mg daily continue Plavix 75 mg daily continue Lipitor 40 mg daily (2) Hypertensive emergency Current Visit: Yes Status: Acute Plan: patient is in pulmonary edema would recommend starting patient on NTG drip, titrate to goal BP less than 140 systolic also Lasix 40 mg IV BID Monitor input and output and electrolytes Patient had an echo done at [facility] that shown EF 25-30% with severe global hypokinesis repeat echo (3) PVC (premature ventricular contraction) Current Visit: Yes Status: Acute Plan: Patient was discharged from [facility] with Mexiletine 150 mg po TID Hold on that for now and will monitor on tele
[2025-08-31 10:54] LABS: Arterial Blood Carboxyhemoglob 4.0 % (0.0-1.5); Blood Gas Oxyhemoglobin 91.6 % (94.0-97.0); Blood O2 Saturation 93.8 % (92.0-98.5)
[2025-08-31 10:55] LABS: Blood Gas Inspired Oxygen 40.0 %
[2025-08-31 10:56] LABS: PT Prothrombin Time 12.7 SECONDS (10-13.0); PTT, Activated Partial Thromb 119.9 SECONDS (27.2-37.4); Protime INR 1.13
[2025-08-31] MEDS: NA CHLORIDE 0.9% 1,000 ML IV SCH (11:38)
[2025-08-31] MEDS: ONDANSETRON 4 MG/2 ML VIAL IV PRN (11:39)
[2025-08-31] MEDS: FUROSEMIDE 40 MG/4 ML VIAL IV ONE (11:39)
[2025-08-31] MEDS: NITROGLYCERIN/D5W 50 MG/250 ML BTL IV SCH (11:52)
[2025-08-31] MEDS: HEPARIN/D5W 25,000 UNIT/500 ML BAG IV SCH (11:54)
[2025-08-31 12:11] LABS: Sqamous Epithelial <5 /HPF (None Seen); Urine Culture Reflex Order NOT NEEDED; Urine Microscopic Reflex YN ORDER UMIC; Urine Yeast (Budding) Trace /HPF (None Seen)
[2025-08-31] MEDS: METOPROLOL TARTRATE 5 MG/5 ML INJ IV SCH (14:47)
--- NOTE | 2025-08-31 15:17 | RAD REPORT ---
EXAMINATION: ONE VIEW CHEST XR CLINICAL INDICATION: shortness of breath/tachypnea TECHNIQUE: Frontal chest projection is submitted. Examination is limited by patient positioning and t echnique. COMPARISON: No prior exam. FINDINGS: Moderate bilateral pulmonary opacities, greater on the right, likely representing pulmonary edema or pneumonia. The heart is moderately enlarged in size. No displaced fractures identified.
[2025-08-31] MEDS: FUROSEMIDE 40 MG/4 ML VIAL IV SCH (17:50)
[2025-08-31] MEDS: LORazepam 2 MG/ML VIAL IV ONE (19:53)
[2025-08-31] MEDS: ATORVASTATIN 40 MG TAB PO SCH (20:00)
[2025-08-31] MEDS ORDERED: ATORVASTATIN 80 MG TAB PO SCH (21:00)
[2025-09-01 06:05] LABS: Absolute Lymphocytes (CBC) 3.0 K/uL (0.7-4.9); Hematocrit 47.8 % (36.0-45.0); Hemoglobin 15.9 g/dL (12.0-15.0); MCH 28.8 pg (27.0-35.0); MCHC 33.2 g/dL (32.0-36.0); MCV 86.8 fL (80-100); MPV 8.7 fL (7.6-11.3); Nucleated RBC Absolute Count 0.0 (0-0); Nucleated Red Blood Cells % 0.0 % (0-0); RBC Red Blood Cell Count 5.50 M/uL (3.86-4.86); White Blood Count 19.30 thou/uL (4.3-10.9)
[2025-09-01 06:15] LABS: PT Prothrombin Time 13.1 SECONDS (10-13.0); PTT, Activated Partial Thromb 56.4 SECONDS (27.2-37.4); Protime INR 1.16
[2025-09-01 06:31] LABS: Anion Gap 8.6 mEq/L (5.0-15.0); BUN Blood Urea Nitrogen 16.0 mg/dL (7-18); Glucose Level 129.0 mg/dL (74-106); HDL Cholesterol 53.0 mg/dL (40-60); LDL Cholesterol, Calculated 68.0 mg/dL (<130); LDL Cholesterol,Calc NonReport 68.0; Magnesium 1.7 mg/dL (1.6-2.4); Potassium 3.6 mEq/L (3.5-5.1); Thyroid Stimulating Hormone 0.468 uIU/mL (0.358-3.740)
[2025-09-01] MEDS: ASPIRIN EC 81 MG TAB PO SCH (08:09)
[2025-09-01] MEDS: MAGNESIUM SULFATE 1 gm IVPB 1 GM/100 ML BAG IV ONE (08:09)
[2025-09-01] MEDS: POTASSIUM CL SA 10 MEQ TAB PO ONE (08:09)
[2025-09-01] MEDS: CLOPIDOGREL 75 MG TABLET PO SCH (08:09)
[2025-09-01] MEDS: LOSARTAN POTASSIUM 50 MG TABLET PO SCH (08:09)
--- NOTE | 2025-09-01 10:30 | P.PN ---
Subjective Date of Service: 09/01/25 Chief Complaint: CP, ACS r/o Subjective: No new changes, No C/O voiced, Tolerating diet, Ambulating, Improving Review of Systems 10-point ROS is otherwise unremarkable Physical Examination - Vital Signs Temperature: 97.2 F Blood Pressure: 124/80 Pulse: 91 Respirations: 13 Pulse Ox (%): 95 - Physical Exam General: Alert, In no apparent distress HEENT: Atraumatic, PERRLA, EOMI Neck: Supple, JVD not distended Respiratory: Clear to auscultation bilaterally, Normal air movement Cardiovascular: Regular rate/rhythm, Normal S1 S2 Gastrointestinal: Normal bowel sounds, No tenderness Musculoskeletal: No tenderness Integumentary: No rashes Neurological: Normal speech, Normal tone, Normal affect Lymphatics: No axilla or inguinal lymphadenopathy - Studies Medications List Reviewed: Yes Assessment And Plan - Current Problems (Diagnosis) (1) NSTEMI (non-ST elevated myocardial infarction) Current Visit: Yes Status: Acute Plan: Patient with history of PCI LCX, recent PCI Ostial RCA, left AMA from another hospital so she is did not get her DAPT Troponin mild elevated with no significant EKG changes. D/C Heparin drip Echo show severe reduced LV systolic function, severe global hypokinesis continue ASA 81 mg daily continue Plavix 75 mg daily continue Lipitor 40 mg daily (2) Hypertensive emergency Current Visit: Yes Status: Acute Plan: patient presented in pulmonary edema, feeling better today, off NTG drip continue lasix 40 mg IV BID for one more day Patient had an echo done at OSH and repeated one shown EF 25-30% with severe global hypokinesis (3) PVC (premature ventricular contraction) Current Visit: Yes Status: Acute Plan: Patient was discharged from [facility] with Mexiletine 150 mg po TID Hold on that for now and will monitor on tele start lopressor 25 mg po BID (4) Acute on chronic combined systolic and diastolic heart failure Current Visit: Yes Status: Acute Plan: continue lasix 40 mg IV BID for one more day start lopressor 25 mg po BID Continue losartan 25 mg daily
--- NOTE | 2025-09-01 12:06 | P.PN ---
Subjective Date of Service: 09/01/25 Chief Complaint: CP, ACS r/o Subjective: Tolerating diet, Improving Assessed patient sitting up in bed on nonrebreather in no apparent distress. Patient endorses feeling much better today. Denies dyspnea, chest pain, dizziness, chills. Endorses still having dry cough that is improved from previous day. Currently complains of hunger. Reviewed will start cardiac/diabetic diet. Additionally, reviewed will look at downgrading her to medical floor today if she is able to tolerate nasal cannula and remove Torres catheter. Patient verbalizes understanding and all questions answered. Review of Systems 10-point ROS is otherwise unremarkable Physical Examination - Vital Signs Temperature: 97.2 F Blood Pressure: 96/81 Pulse: 86 Respirations: 12 Pulse Ox (%): 91 - Physical Exam General: Alert, In no apparent distress, Oriented x3, Cooperative, Obese HEENT: Atraumatic, Normocephalic, Mucous membr. moist/pink Neck: Supple, 2+ carotid pulse no bruit, JVD not distended, No Thyromegaly Respiratory: Clear to auscultation bilaterally, Normal air movement, Diminished (bases) Cardiovascular: No edema, Normal pulses, Regular rate/rhythm, Normal S1 S2, No gallops, No rubs, No murmurs Capillary refill: Brisk Gastrointestinal: Normal bowel sounds, Soft and benign, Non-distended, W/out hepatosplenomegaly Musculoskeletal: No clubbing, No swelling, No contractures, No erythema, No tenderness Integumentary: No rashes, No breakdown, No significant lesion, No tenderness/swelling, No erythema Neurological: Normal speech, Normal tone, Sensation intact, Cranial nerves 3-12 intact, Normal affect Urinary: Torres catheter External genitalia: Deferred Rectal: Deferred - Studies Medications List Reviewed: Yes Assessment And Plan - Plan Assessment: 65-year-old female with complaints of chest pain, shortness of breath, N/V with stent placement with Dr. Hammond on 08/28/2025 in [place] admitted for ACS rule out. Plan: Chest pain nausea and vomiting - Patient with history of PCI LCX, recent PCI Ostial RCA, left AMA from another hospital so she is did not get her DAPT - Troponin mild elevated with no significant EKG changes. - D/C Heparin drip - Echo show severe reduced LV systolic function, severe global hypokinesis - continue ASA 81 mg daily - continue Plavix 75 mg daily - continue Lipitor 40 mg daily - Cardiology consult, Dr. Hammond Hypokalemia - Replete with potassium protocol Monitor BMP Hypertensive emergency - Monitor vital signs DC nitro drip Continue Lasix 40 mg IV twice daily for 1 more day Patient had echo at outside hospital and repeat showed EF 25 to 30% with severe global hypokinesis PVCs Discharged from [facility] on mexiletine 150 mg 3 times daily Hold for now and monitor until he Start Lopressor 25 mg twice daily Acute on chronic systolic and diastolic heart failure Continue Lasix 40 mg IV twice daily Start Lopressor 25 mg twice daily Continue losartan 25 mg daily Dispo: Anticipate home Cardiology following Discharge Plan: Home Plan to discharge in: 48 Hours - Code Status/Comfort Care Code Status Assessed: No
[2025-09-01] MEDS: FLU (Fluarix) 25-26 (6MOS UP)/PF 45 MCG/0.5 ML Syringe IM ONE (12:39)
[2025-09-01] MEDS: hydrOXYzine HCL 25 MG TAB PO PRN (16:19)
[2025-09-01] MEDS ORDERED: METOPROLOL TAR 25 MG TAB PO SCH (18:00)
[2025-09-01] MEDS: TRAZODONE 50 MG TABLET PO SCH (21:41)
[2025-09-01] MEDS: PROMETHAZINE INJ 25 MG/ML AMP IM ONE (23:36)
[2025-09-01] MEDS ORDERED: SODIUM CHLORIDE 0.9% 10ML INJ IV PRN (23:46)
[2025-09-01] MEDS: METOPROLOL TARTRATE 5 MG/5 ML INJ IV ONE (23:50)
[2025-09-01] MEDS: PANTOPRAZOLE 40 MG INJ ONE (23:50)
[2025-09-01] MEDS: PANTOPRAZOLE 40 MG INJ IVP ONE (23:57)
[2025-09-01] MEDS: METOPROLOL TARTRATE 5 MG/5 ML INJ IV STA (23:57)
[2025-09-02] MEDS: HYDRALAZINE HCL 20 MG/ML VIAL IV ONE (01:25)
[2025-09-02] MEDS: Nicardipine/NS 25 MG/250 ML KIT IV ONE (02:20)
[2025-09-02] MEDS: Nicardipine/NS 25 MG/250 ML KIT IV SCH (02:23)
--- NOTE | 2025-09-02 02:31 | RAD REPORT ---
CT HEAD WITHOUT IV CONTRAST INDICATION: Numbness both arms.. COMPARISON: None TECHNIQUE: CT images of the head were obtained without contrast. Multiplanar reformats were provided. Dose lowering techniques such as automated exposure control, iterative reconstruction, and mA and/or kV adjustment for patient size was utilized for this examination. FINDINGS: PARENCHYMA: No acute arterial territory infarct. No acute intracranial hemorrhage. No mass effect or midline shift. VENTRICLES: Normal in size for patient's age. EXTRA-AXIAL: No focal collection. Patent basilar cisterns. ORBITS: Unremarkable. BONES: No acute finding. PARANASAL SINUSES/MASTOIDS/MIDDLE EARS: Clear. SOFT TISSUES: No acute findings. OTHER: None. IMPRESSION: No acute intracranial abnormality. Electronically signed by: Liz Milligan MD 09/02/2025 12:57 AM CDT Due to temporary technical issues with the PACS/[employer] reporting system, reports are being kam d by the in-house radiologist without review as a courtesy to ensure prompt reporting the interpreting radiologist is fully responsible for the content of the report. Transcribed Date/Time: 09/02/2025 2:31 AM
--- NOTE | 2025-09-02 02:32 | RAD REPORT ---
EXAM: CT Chest, Abdomen and Pelvis With Intravenous Contrast CLINICAL HISTORY: The patient is 65 years old and is Female; Tachycardia, shortness of breath, severe abdominal TECHNIQUE: Axial computed tomography images of the chest, abdomen and pelvis with intravenous contrast. Sagi ttal and coronal reformatted images were created and reviewed. This CT exam was performed using one or more of the following dose reduction techniques: automated exposure control, adjustment of t he mA and/or kV according to patient size, and/or use of iterative reconstruction technique. COMPARISON: No relevant prior studies available. FINDINGS: CHEST: LUNGS AND PLEURAL SPACES: A trace right pleural effusion is present. Minimal atelectasis within t he right lower lobe is present. The lungs are otherwise well-inflated and clear. The tracheobronchial tree is present. No mass. No pneumothorax. HEART: No cardiomegaly. No pericardial effusion. ABDOMEN: LIVER: The liver is enlarged and fatty. GALLBLADDER AND BILE DUCTS: The gallbladder is slightly contracted. No calcified gallstones are n oted. PANCREAS: No ductal dilation. No mass. SPLEEN: Unremarkable. ADRENALS: Unremarkable. No mass. KIDNEYS AND URETERS: Unremarkable. The kidneys enhance symmetrically. No obstructing renal or ure teral calculus is seen. No hydronephrosis or hydroureter. No perinephric fluid or stranding. STOMACH AND BOWEL: The stomach is minimally filled with fluid and air. The small bowel is normal in caliber. Stool is present throughout the colon. There is no mucosal thickening or evidence of obstruction. PELVIS: APPENDIX: The appendix is normal in caliber without surrounding inflammation. BLADDER: A Torres catheter is present within the bladder which is decompressed. REPRODUCTIVE: Unremarkable as visualized. CHEST, ABDOMEN and PELVIS: INTRAPERITONEAL SPACE: Unremarkable. No significant fluid collection. No free air. BONES/JOINTS: Minimal degenerative change of the lower lumbar spine is present. There is no acute fracture. SOFT TISSUES: A fat-containing umbilical hernia is present. VASCULATURE: Calcified phleboliths are present within the pelvis. Atherosclerosis of the vascul ature is present. The vessels are normal in caliber. No aortic aneurysm. LYMPH NODES: Unremarkable. No enlarged lymph nodes. IMPRESSION: 1. Trace right pleural effusion with left lower lobe atelectasis. 2. No bowel obstruction. Mild stool burden. Normal appendix. Electronically signed by: Kristi Fragoso MD 09/02/2025 02:14 AM CDT RP Due to temporary technical issues with the PACS/[employer] reporting system, reports are being kam d by the in-house radiologist without review as a courtesy to ensure prompt reporting the interpreting radiologist is fully responsible for the content of the report. Transcribed Date/Time: 09/02/2025 2:32 AM
[2025-09-02 04:51] LABS: Absolute Lymphocytes (CBC) 1.4 K/uL (0.7-4.9); Hematocrit 47.6 % (36.0-45.0); Hemoglobin 16.2 g/dL (12.0-15.0); MCH 29.1 pg (27.0-35.0); MCHC 34.0 g/dL (32.0-36.0); MCV 85.5 fL (80-100); MPV 8.2 fL (7.6-11.3); Nucleated RBC Absolute Count 0.0 (0-0); Nucleated Red Blood Cells % 0.1 % (0-0); RBC Red Blood Cell Count 5.56 M/uL (3.86-4.86); White Blood Count 16.40 thou/uL (4.3-10.9)
[2025-09-02 05:05] LABS: Anion Gap 12.7 mEq/L (5.0-15.0); BUN Blood Urea Nitrogen 21.0 mg/dL (7-18); Glucose Level 157.0 mg/dL (74-106); Magnesium 1.7 mg/dL (1.6-2.4); Potassium 2.7 mEq/L (3.5-5.1)
[2025-09-02 05:06] LABS: PT Prothrombin Time 13.0 SECONDS (10-13.0); PTT, Activated Partial Thromb 26.9 SECONDS (27.2-37.4); Protime INR 1.16
[2025-09-02 05:17] LABS: Blood Morphology Comment NOT SEEN (NOT SEEN); Differential Total Cells Count 100; Segmented Neutrophils 86 % (40-80)
[2025-09-02] MEDS: Magnesium Sulfate 2gm IVPB 2 G/50 ML BAG IV ONE (06:11)
[2025-09-02] MEDS: POTASSIUM 25 MEQ EFFERV TAB PO ONE (06:11)
--- NOTE | 2025-09-02 06:15 | RAD REPORT ---
EXAM: XR Chest, 1 View CLINICAL HISTORY: The patient is 65 years old and is Female; SOB TECHNIQUE: Frontal view of the chest. COMPARISON: XR Chest dated August 31 2025 FINDINGS: LUNGS: Unremarkable. No consolidation. PLEURAL SPACE: Unremarkable. No pneumothorax. HEART: The cardiac silhouette is prominent. MEDIASTINUM: Unremarkable. Normal mediastinal contour. BONES/JOINTS: Unremarkable. No acute fracture. VASCULATURE: Atherosclerosis of the aorta is present. UPPER ABDOMEN: Unremarkable as visualized. IMPRESSION: No acute cardiopulmonary process. Electronically signed by: Kristi Fragoso MD 09/02/2025 01:30 AM CDT Due to temporary technical issues with the PACS/[employer] reporting system, reports are being kam d by the in-house radiologist without review as a courtesy to ensure prompt reporting the interpreting radiologist is fully responsible for the content of the report. Transcribed Date/Time: 09/02/2025 6:15 AM
[2025-09-02] MEDS: LORazepam 2 MG/ML VIAL IV PRN (07:36)
--- NOTE | 2025-09-02 08:18 | P.PN ---
Date of Service: 09/02/25 Subjective Chief Complaint: CP, ACS r/o Subjective: Tolerating diet, Improving Assessed patient sitting up in bed with RN at the bedside. Patient endorsed overnight and had headache, chills, bilateral upper extremity numbness without weakness, nausea/vomiting, mild chest pain. She states that upper extremity sensation has returned to baseline. Endorses good improvement of nausea with vomiting with Zofran. Chart review shows elevated blood pressures and pulse. Patient currently on Cardene drip and maintaining normotension with tachycardia, mild. Discussed with RN to titrate drip down and trial DC. Significant electrolyte abnormalities for today include magnesium 1.7, potassium 2.7, phosphorus 1.1. Discussed with RN to implement electrolyte protocol and recheck electrolytes after receiving repletion. Patient currently appears to be in mild distress related to abdominal pain, N/V. Last bowel movement 2 days ago. Denies belching and moderate stool burden on imaging. Review of Systems 10-point ROS is otherwise unremarkable Physical Examination - Vital Signs Temperature: 97.8 F Blood Pressure: 128/73 Pulse: 114 Respirations: 11 Pulse Ox (%): 96 - Physical Exam General: Alert, mild distress, Oriented x3, Cooperative, Obese HEENT: Atraumatic, Normocephalic, Mucous membr. moist/pink Neck: Supple, 2+ carotid pulse no bruit, JVD not distended, No Thyromegaly Respiratory: Clear to auscultation bilaterally, Normal air movement, Diminished (bases) Cardiovascular: No edema, Normal pulses, Regular rate/rhythm, Normal S1 S2, No gallops, No rubs, No murmurs, tachycardic Capillary refill: Brisk Gastrointestinal: Normal bowel sounds, Soft and benign, Non-distended, W/out hepatosplenomegaly, mild left lower quadrant tenderness on palpation Musculoskeletal: No clubbing, No swelling, No contractures, No erythema, No tenderness Integumentary: No rashes, No breakdown, No significant lesion, No tenderness/swelling, No erythema Neurological: Normal speech, Normal tone, Sensation intact, Cranial nerves 3-12 intact, Normal affect Urinary: Torres catheter External genitalia: Deferred Rectal: Deferred - Studies Medications List Reviewed: Yes Assessment And Plan - Plan Assessment: 65-year-old female with complaints of chest pain, shortness of breath, N/V with stent placement with Dr. Hammond on 08/28/2025 in [place] admitted for ACS rule out. Plan: Chest pain nausea and vomiting - Patient with history of PCI LCX, recent PCI Ostial RCA, left AMA from another hospital so she is did not get her DAPT - Troponin mild elevated with no significant EKG changes. - D/C Heparin drip - Echo show severe reduced LV systolic function, severe global hypokinesis - continue ASA 81 mg daily - continue Plavix 75 mg daily - continue Lipitor 40 mg daily - Cardiology consult, Dr. Hammond Hypokalemia - Replete with potassium protocol Monitor [facility] Hypertensive emergency - Monitor vital signs DC nitro drip Continue Lasix 40 mg IV twice daily for 1 more day Patient had echo at outside hospital and repeat showed EF 25 to 30% with severe global hypokinesis PVCs Discharged from [facility] on mexiletine 150 mg 3 times daily Hold for now and monitor until he Start Lopressor 25 mg twice daily Acute on chronic systolic and diastolic heart failure Continue Lasix 40 mg IV twice daily Start Lopressor 25 mg twice daily Continue losartan 25 mg daily Right upper extremity numbness, resolved Denies focal weakness CT head negative for acute intracranial abnormality Abdominal pain CT imaging showing mild stool burden Bowel regimen scheduled Supportive care as noted above for [place] Mixed depression anxiety disorder Restart fluoxetine 20 mg p.o. daily Restart hydroxyzine 25 mg 3 times daily as needed Ativan 1 mg IV x 1 ordered as needed as potential contributor to overnight events Insomnia Restart trazodone 100 mg p.o. at bedtime Dispo: Anticipate home Cardiology following Discharge Plan: Home Plan to discharge in: 24 Hours - Code Status/Comfort Care Code Status Assessed: No
[2025-09-02] MEDS: POTASSIUM PHOS IN 0.9 % NACL 15 MMOL/250 ML BAG IV ONE (08:41)
[2025-09-02] MEDS: MAGNESIUM SULFATE 1 gm IVPB 1 GM/100 ML BAG IV ONE (08:42)
[2025-09-02] MEDS: FLUOXETINE 20 MG CAP PO SCH (08:42)
[2025-09-02] MEDS: BACLOFEN 10 MG TAB PO SCH (08:42)
[2025-09-02] MEDS: KCL 20 MEQ/100 mL IVPB 20 MEQ/100 ML BAG IV SCH (10:05)
--- NOTE | 2025-09-02 10:37 | P.PN ---
Subjective Date of Service: 09/02/25 Chief Complaint: CP, ACS r/o Subjective: No new changes, No C/O voiced, Tolerating diet, Ambulating, Improving Review of Systems 10-point ROS is otherwise unremarkable Physical Examination - Vital Signs Temperature: 98.8 F Blood Pressure: 131/84 Pulse: 111 Respirations: 20 Pulse Ox (%): 98 - Physical Exam General: Alert, In no apparent distress HEENT: Atraumatic, PERRLA, EOMI Neck: Supple, JVD not distended Respiratory: Clear to auscultation bilaterally, Normal air movement Cardiovascular: Regular rate/rhythm, Normal S1 S2 Gastrointestinal: Normal bowel sounds, No tenderness Musculoskeletal: No tenderness Integumentary: No rashes Neurological: Normal speech, Normal tone, Normal affect Lymphatics: No axilla or inguinal lymphadenopathy - Studies Medications List Reviewed: Yes Assessment And Plan - Current Problems (Diagnosis) (1) NSTEMI (non-ST elevated myocardial infarction) Current Visit: Yes Status: Acute Plan: Patient with history of PCI LCX, recent PCI Ostial RCA, left AMA from another hospital so she is did not get her DAPT Troponin mild elevated and down trended with no significant EKG changes. Echo show severe reduced LV systolic function, severe global hypokinesis continue ASA 81 mg daily continue Plavix 75 mg daily continue Lipitor 40 mg daily (2) Hypertensive emergency Current Visit: Yes Status: Acute Plan: patient presented in pulmonary edema, feeling better today, off NTG drip continue lasix 40 mg IV BID for one more day Patient had an echo done at OSH and repeated one shown EF 25-30% with severe global hypokinesis (3) PVC (premature ventricular contraction) Current Visit: Yes Status: Acute Plan: Patient was discharged from [facility] with Mexiletine 150 mg po TID Hold on that for now and will monitor on tele start lopressor 25 mg po BID (4) Acute on chronic combined systolic and diastolic heart failure Current Visit: Yes Status: Acute Plan: continue lasix 40 mg IV BID for one more day start lopressor 25 mg po BID Continue losartan 25 mg daily add Aldactone 25 mg daily will add Farxiga 10 mg daily on discharge.
[2025-09-02] MEDS: METOPROLOL TAR 25 MG TAB PO ONE (10:38)
[2025-09-02] MEDS: METOPROLOL TARTRATE 5 MG/5 ML INJ IV STA (10:55)
[2025-09-02] MEDS: SPIRONOLACTONE 25 MG TABLET PO SCH (10:55)
[2025-09-02] MEDS: METOPROLOL TAR 25 MG TAB PO SCH (10:55)
[2025-09-02 12:28] VITALS: BMI 29.2
[2025-09-02 17:19] VITALS: TEMP 98.6
[2025-09-02] MEDS ORDERED: METOPROLOL TAR 25 MG TAB PO SCH (18:00)
[2025-09-02 18:57] LABS: Anion Gap 11.8 mEq/L (5.0-15.0); BUN Blood Urea Nitrogen 26.0 mg/dL (7-18); Glucose Level 119.0 mg/dL (74-106)
[2025-09-02 18:59] LABS: Magnesium 2.1 mg/dL (1.6-2.4); Potassium 3.8 mEq/L (3.5-5.1)
[2025-09-02 20:27] VITALS: O2SAT 94
[2025-09-02] MEDS ORDERED: SPIRONOLACTONE 25 MG TABLET PO SCH (21:00)
[2025-09-02 21:38] VITALS: BP 95/56
--- NOTE | 2025-09-03 11:00 | P.DS ---
Admission Date: 08/31/25 Discharge Date: 09/03/25 Disposition: AMA-LEFT AGAINST MEDICAL ADVIC Discharge Condition: GOOD Reason for Admission: CP, ACS r/o Consultations: Cardiology Brief History of Present Illness: History: Tamica Lambert is a 65-year-old who presented to the emergency room with complaints of chest pain, shortness of breath, nausea, and vomiting. She endorsed persistent nausea, initially with vomiting and now with dry heaving, accompanied by chest pain that began around 1:00 AM this morning. The chest pain is primarily substernal and does not radiate, nor is it alleviated or aggravated by anything. She stated that she felt well after leaving her stent placement on Sunday, Sunday, and Sunday. Tamica Lambert denied experiencing dizziness, blurred vision, sweating, radiation of chest pain, or one-sided weakness. She was noted to be lying in bed in moderate distress on room air with a vomit bag at the bedside. Past Medical History: - Hypercholesterolemia - Hypertensive disorder - Anxiety - Depressive disorder - Diabetes mellitus type 2 - Stent placement on 08/28/2024 - Coronary artery disease Family history: Positive family history for atherosclerotic disease. Social history: Tamica Lambert is a current smoker, consuming half a pack of cigarettes per day. She denied alcohol or drug use. Allergies and reactions: Denies any allergies. Hospital Course: Hospital course by diagnosis Chest pain Patient with history of PCI to LCx, recent PCI ostial RCA, left AMA from OSH and did not get DAPT. Troponin mildly elevated without significant EKG changes. Initially started heparin drip then DC'd. Echo completed showing severely reduced LV systolic dysfunction with severe global hypokinesis. Patient continued on aspirin 81 mg daily, Plavix 75 mg daily, Lipitor 40 mg daily and followed by Dr. Hammond with cardiology. Hypokalemia. Potassium was monitored throughout admission and repleted with potassium protocol as needed. Hypertensive emergency Patient noted to be in hypertensive emergency on admission. Vital signs were monitored. She was initiated on nitro drip which was discontinued once pressures were more controlled. She was continued on Lasix 40 mg IV twice daily morning monitor and followed by cardiology. Outside echo as noted above with a EF of 25 to 30%. PVCs Recently discharged from [facility] on mexiletine 150 mg 3 times daily. Hold while inpatient, started on Lopressor 25 mg twice daily and monitored throughout admission. Acute on chronic systolic and diastolic heart failure Patient was continued on Lasix 40 mg twice daily, started on Lopressor 25 mg twice daily and continued on losartan 25 mg daily. Panic attack Patient complained of right upper extremity numbness that resolved spontaneously. She denied focal weakness at that time. CT was completed of the head which was negative for acute intracranial abnormality. At the same time patient was complaining of abdominal pain, CT imaging reviewed mild stool burden and a bowel regimen was scheduled. Patient was given supportive care. Mixed anxiety and depression disorder Insomnia Home fluoxetine 20 mg daily was restarted. Additionally she was restarted on hydroxyzine 25 mg 3 times daily as needed. She did require one-time dose of Ativan 1 mg IV due to panic attack. Her home trazodone 100 mg by mouth was restarted for bedtime. The patient was clinically not intoxicated, free from distracting pain, appeared to have intact insight, judgment and reason and in my medical opinion had the capacity to make decisions at the time of a.m. assessment on the day of elopement. The patient was also not under any duress to leave the hospital. In this scenario, it would be battery to subject a patient to treatment against her will. Vital Signs/Physical Exam: Temp Pulse Resp BP Pulse Ox 98.6 F 66 18 95/56 L 100 09/02/25 20:00 09/02/25 20:00 09/02/25 20:00 09/02/25 20:00 09/02/25 20:00 Other Physical/Emotional Findings: Pt not assessed at time of DC Laboratory Data at Discharge: WBC 16.40 thou/uL (4.3-10.9) H 09/02/25 04:19 Hgb 16.2 g/dL (12.0-15.0) H 09/02/25 04:19 Hct 47.6 % (36.0-45.0) H 09/02/25 04:19 Plt Count 270 thou/uL (152-406) 09/02/25 04:19 PT 13.0 SECONDS (10-13.0) 09/02/25 04:19 INR 1.16 09/02/25 04:19 APTT 26.9 SECONDS (27.2-37.4) L 09/02/25 04:19 Sodium 135 mEq/L (136-145) L 09/02/25 18:17 Potassium Cancelled 09/02/25 Unknown BUN 26 mg/dL (7-18) H 09/02/25 18:17 Creatinine 1.03 mg/dL (0.55-1.02) H 09/02/25 18:17 Glucose 119 mg/dL (74-106) H 09/02/25 18:17 Phosphorus 3.4 mg/dL (2.5-4.9) 09/02/25 18:17 Magnesium 2.1 mg/dL (1.6-2.4) 09/02/25 18:17 Total Bilirubin 0.9 mg/dL (0.2-1.0) 08/31/25 09:59 AST 15 U/L (15-37) 08/31/25 09:59 ALT 25 U/L (13-56) 08/31/25 09:59 Alkaline Phosphatase 85 U/L (45-117) 08/31/25 09:59 Triglycerides 137 mg/dL (<150) 09/01/25 05:15 Cholesterol 148 mg/dL (<200) 09/01/25 05:15 HDL Cholesterol 53 mg/dL (40-60) 09/01/25 05:15 Cholesterol/HDL Ratio 2.79 09/01/25 05:15 Lipase 18 U/L (13-75) 08/31/25 05:12 Home Medications: Atorvastatin Calcium [Lipitor] 80 mg PO BEDTIME 08/31/25 Baclofen 10 mg PO 08/31/25 Empagliflozin [Jardiance] 10 mg PO 08/31/25 Fluoxetine HCl [Prozac] 20 mg PO 08/31/25 Losartan Potassium 25 mg PO 08/31/25 Trazodone HCl 100 mg PO BEDTIME 08/31/25 hydrOXYzine pamoate [Hydroxyzine Pamoate] 25 mg PO 08/31/25 Clopidogrel Bisulfate [Plavix*] 75 mg PO DAILY #30 tab 09/02/25 Furosemide [Lasix] 40 mg PO DAILY #30 tab 09/02/25 Metoprolol Tartrate [Lopressor*] 25 mg PO BID 6AM 6PM #60 tab 09/02/25 Sodium,Potassium Phosphates [Zlvxczutwa-Onkata-Pjegwtcjx] 1 each PO DAILY #30 packet 09/02/25 Spironolactone [Aldactone*] 25 mg PO BID #60 tab 09/02/25 New Medications: Spironolactone [Aldactone*] 25 mg PO BID #60 tab Furosemide [Lasix] 40 mg PO DAILY #30 tab Metoprolol Tartrate [Lopressor*] 25 mg PO BID 6AM 6PM #60 tab Sodium,Potassium Phosphates [Epwfvqvbyo-Csfhgz-Nrarmoznu] 1 each PO DAILY #30 packet Clopidogrel Bisulfate [Plavix*] 75 mg PO DAILY #30 tab Physician Discharge Instructions: Follow up with PCP Follow-up with cardiology Take all medication as prescribed Diet: AHA Followup: Jaren Perea, PAC [Primary Care Provider] - Time spent managing pt's care (in minutes): 36
== END 2025-09-02 20:45 | disposition left against medical advice (07) | DRG 280 ==
LOC: ER 04:58 → ERHOLD 07:06 → 3RD-ICU 10:21 → 4TH 09-02 12:43
PROVIDERS: ADMIT Hospitalist; ATTEND Hospitalist
PROC: 5A09457 Assistance with Respiratory Ventilation, 24-96 Consecutive Hours, Continuous Positive Airway Pressure (ICD-10-PCS; principal; 2025-08-31)
PROC: 0T9B70Z Drainage of Bladder with Drainage Device, Via Natural or Artificial Opening (ICD-10-PCS; 2025-08-31)
DX: I21.4 Non-ST elevation (NSTEMI) myocardial infarction (principal); I50.43 Acute on chronic combined systolic (congestive) and diastolic (congestive) heart failure; J96.01 Acute respiratory failure with hypoxia; I16.1 Hypertensive emergency; I11.0 Hypertensive heart disease with heart failure; E78.00 Pure hypercholesterolemia, unspecified; F41.8 Other specified anxiety disorders; G47.00 Insomnia, unspecified; E87.6 Hypokalemia; F41.0 Panic disorder [episodic paroxysmal anxiety]; I49.3 Ventricular premature depolarization; E11.9 Type 2 diabetes mellitus without complications; J44.9 Chronic obstructive pulmonary disease, unspecified; K21.9 Gastro-esophageal reflux disease without esophagitis; I25.10 Atherosclerotic heart disease of native coronary artery without angina pectoris; F17.210 Nicotine dependence, cigarettes, uncomplicated; Z71.6 Tobacco abuse counseling; Z23 Encounter for immunization; Z95.5 Presence of coronary angioplasty implant and graft; Z79.84 Long term (current) use of oral hypoglycemic drugs; Z53.29 Procedure and treatment not carried out because of patient's decision for other reasons; Z79.899 Other long term (current) drug therapy
CPT/HCPCS: 36415; 70450; 71045; 71260; 71275; 74177; 80048; 80061; 80076; 81001; 82805; 82947; 83690; 83735; 83880; 84100; 84439; 84443; 84484; 85025; 85610; 85730; 90656; 93005; 93306; 94010; 94660; 94760; 96372; 99285; J0360; J1644; J1938; J2404; J2405; J2470; J2550; J3475; J3480; J7030; Q9967